=== PATIENT | female | born 1935 | race Caucasian/White ===

== ENCOUNTER 2017-06-18 12:10 | Inpatient (IN) | payer MEDICARE, MEDICAID ==
[2017-06-18 13:15] LABS: ABSOLUTE EOSINOPHILS # (AUTO) 0.3 10^3/uL (0.0-0.6); ABSOLUTE MONOCYTES (AUTO) 0.6 10^3/uL (0.1-1.4); ABSOLUTE NEUT (AUTO) 4.6 10^3/uL (1.7-8.2); BASOPHILS % (AUTO) 0.6 % (0-2); EOSINOPHILS % (AUTO) 4.1 % (0-6); HEMATOCRIT 26.5 % (36.0-47.0); HEMOGLOBIN 8.5 g/dL (12.0-15.5); LYMPHOCYTES % (AUTO) 15.6 % (13-45); MEAN CORPUSCULAR HEMOGLOBIN 27.5 pg (27.0-33.4); MEAN CORPUSCULAR HGB CONC 32.2 g/dL (32.0-36.0); MEAN CORPUSCULAR VOLUME 85 fl (80-97); MONOCYTES % (AUTO) 9.3 % (3-13); PLATELET COUNT 350 10^3/uL (150-450); RED CELL DISTRIBUTION WIDTH 16.1 % (11.5-14.0); SEGMENTED NEUTROPHILS % (AUTO) 70.4 % (42-78); TOTAL CELLS COUNTED % (AUTO) 100 %; WHITE BLOOD COUNT 6.6 10^3/uL (4.0-10.5)
[2017-06-18 13:16] LABS: APPEARANCE,URINE TURBID; BILIRUBIN,URINE NEGATIVE (NEGATIVE); GLUCOSE, URINE NEGATIVE (NEGATIVE); KETONES,URINE NEGATIVE (NEGATIVE); LEUKOCYTE ESTERASE,URINE LARGE (NEGATIVE); NITRITE,URINE POSITIVE (NEGATIVE); PROTEIN,URINE 30 mg/dL (NEGATIVE); URINE SPECIFIC GRAVITY 1.017; UROBILINOGEN,URINE NEGATIVE mg/dL (<2.0)
[2017-06-18 13:17] LABS: COLOR,URINE YELLOW
[2017-06-18 13:34] LABS: ALANINE AMINOTRANSFERASE 16 U/L (9-52); ALBUMIN 3.7 g/dL (3.5-5.0); ALKALINE PHOSPHATASE 51 U/L (38-126); ANION GAP 15 (5-19); ASPARTATE AMINO TRANSFERASE 17 U/L (14-36); BILIRUBIN,DIRECT 0.1 mg/dL (0.0-0.4); BILIRUBIN,TOTAL 0.1 mg/dL (0.2-1.3); BLOOD UREA NITROGEN 41 mg/dL (7-20); CALCIUM 9.3 mg/dL (8.4-10.2); CARBON DIOXIDE 26 mmol/L (22-30); CHLORIDE 107 mmol/L (98-107); GLUCOSE 128 mg/dL (75-110); POTASSIUM 4.4 mmol/L (3.6-5.0); SODIUM 147.9 mmol/L (137-145); TOTAL PROTEIN 6.5 g/dL (6.3-8.2)
--- NOTE | 2017-06-18 14:18 | ER Document Report ---
ED General - General Chief Complaint: Altered Mental Status Stated Complaint: ALTERED MENTAL STATUS Time Seen by Provider: 06/18/17 12:36 Notes: Patient is a resident of a local shelter who was sent here to get lab studies done, at the request of the patient's primary care provider. Patient has a history of dementia with aggressive and agitated behavior, but apparently is more agitated than normal, not allowing the staff to draw blood or check her urine test. Patient is unable to answer any questions or provide any history and there is no family member or staff member from the shelter to provide any other information. Reviewing her record, in addition to her dementia, shows that she has chronic renal disease, NIDDM, hypertension, and high cholesterol. No other history is available. TRAVEL OUTSIDE OF THE [place] IN LAST 30 DAYS: No - Related Data Allergies/Adverse Reactions: No Known Allergies Allergy (Verified 03/15/14 07:31) Past Medical History - Social History Smoking Status: Unknown if Ever Smoked Cigarette use (# per day): No Family History: Reviewed & Not Pertinent - Past Medical History Cardiac Medical History: Reports: Hx Atrial Fibrillation, Hx Congestive Heart Failure, Hx Hypercholesterolemia, Hx Hypertension Neurological Medical History: Reports: Other - Dementia Endocrine Medical History: Reports: Hx Diabetes Mellitus Type 1, Hx Diabetes Mellitus Type 2 Musculoskeltal Medical History: Denies Hx Arthritis Infectious Medical History: Denies: Hx Hepatitis Past Surgical History: Reports: Hx Hysterectomy - Immunizations Hx Diphtheria, Pertussis, Tetanus Vaccination: No - unknown Review of Systems - Review of Systems -: Yes ROS unobtainable due to patient's medical condition - No one is available to provide any information for review of systems. Physical Exam - Vital signs Vitals: Temp Pulse Resp BP Pulse Ox 98.3 F 87 18 117/83 98 06/18/17 12:20 06/18/17 12:20 06/18/17 12:20 06/18/17 12:20 06/18/17 12:20 Interpretation: Normal - Notes Notes: PHYSICAL EXAMINATION: GENERAL: Well-appearing, in no acute distress. Quiet, but very nasty sarcastic responses to my questions. HEAD: Atraumatic, normocephalic. EYES: Pupils equal round and reactive to light, extraocular movements intact. ENT: oropharynx clear without exudates. Moist mucous membranes. NECK: Normal range of motion, supple. LUNGS: Breath sounds clear and equal bilaterally. HEART: Irregularly irregular rate and rhythm without murmurs. ABDOMEN: Soft, nontender. No guarding or rebound. No masses. BACK: No tenderness throughout entire back. EXTREMITIES: Normal range of motion without pain. NEUROLOGICAL: Normal speech, but confused and disoriented and inappropriate remarks. Does not follow commands. Does not answer questions appropriately. Moves all 4 extremities. SKIN: Warm, dry, no rashes. Course - Re-evaluation Re-evalutation: 06/18/17 14:25 Discussed with patient's primary care provider, Dr. Rivas, and he will admit the patient for IV antibiotics for her UTI. - Vital Signs Vital signs: Temp Pulse Resp BP Pulse Ox 98.3 F 87 18 117/83 98 06/18/17 12:20 06/18/17 12:20 06/18/17 12:20 06/18/17 12:20 06/18/17 12:20 - Laboratory Result Diagrams: 06/18/17 12:55 06/18/17 12:55 Laboratory results interpreted by me: 06/18/17 06/18/17 06/18/17 12:48 12:55 12:55 RBC 3.10 L Hgb 8.5 L Hct 26.5 L RDW 16.1 H Sodium 147.9 H BUN 41 H Creatinine 1.44 H Est GFR ( Amer) 42 L Est GFR (Non-Af Amer) 35 L Glucose 128 H Total Bilirubin 0.1 L Urine Protein 30 H Urine Nitrite POSITIVE H Ur Leukocyte Esterase LARGE H Urine Ascorbic Acid 40 H - EKG Interpretation by Ct Rate: Normal Rhythm: A.Fib Additional EKG results interpreted by me: 06/18/17 14:28 EKG does not show any acute changes. Discharge - Discharge Clinical Impression: UTI (urinary tract infection), Dementia Condition: Stable Disposition: ADMITTED INPATIENT Admitting Provider: [facility] Admitted: Medical Floor
[2017-06-18] MEDS ORDERED: NORMAL SALINE 1000 ML 1,000 ML IV PRN (22:31)
[2017-06-18] MEDS ORDERED: ACETAMINOPHEN 325 MG TABLET PO PRN (22:35)
[2017-06-18] MEDS ORDERED: MAGNESIUM HYDROXIDE SUSP 30 ML UDCUP PO PRN (22:35)
[2017-06-18] MEDS ORDERED: ATORVASTATIN CALCIUM 10 MG TABLET PO SCH (22:45)
[2017-06-18] MEDS ORDERED: CRANBERRY FRUIT EXTRACT 250 MG PO SCH (22:45)
[2017-06-18] MEDS ORDERED: [UNRECOGNIZED DRUG - OTHER] PO SCH (22:45)
--- NOTE | 2017-06-18 22:55 | EKG REPORT ---
SEVERITY:- ABNORMAL ECG - ATRIAL FIBRILLATION LEFT ANTERIOR FASCICULAR BLOCK LOW VOLTAGE IN FRONTAL LEADS CONSIDER ANTEROSEPTAL INFARCT NONSPECIFIC T ABNORMALITIES, LATERAL LEADS : Confirmed by: Jayro Encinas 18-Jun-2017 22:55:07
[2017-06-18] MEDS ORDERED: HEPARIN SOD (PORCINE) 5,000 UNIT/ML 1 ML SYRINGE SUBCUT ONE (23:00)
[2017-06-18] MEDS ORDERED: ATORVASTATIN CALCIUM 10 MG TABLET PO ONE (23:00)
[2017-06-18] MEDS ORDERED: CEFTRIAXONE 1 GM/D5W RTU 1 GM/50 ML RTUPB IV ONE (23:00)
[2017-06-18] MEDS ORDERED: HYDRALAZINE HCL 50 MG TABLET PO ONE (23:00)
[2017-06-18] MEDS ORDERED: CEFTRIAXONE INJ 1000 MG VIAL ONE (23:09)
[2017-06-19] MEDS: HEPARIN SOD (PORCINE) 5,000 UNIT/ML 1 ML SYRINGE SUBCUT SCH ×3 (05:45→21:15)
[2017-06-19] MEDS: HYDRALAZINE HCL 50 MG TABLET PO SCH ×3 (05:46→21:16)
[2017-06-19] MEDS: CALCIUM CARBONATE 500 MG TAB.CHEW PO SCH ×2 (11:53→18:54)
[2017-06-19] MEDS: SITAGLIPTIN PHOSPHATE 25 MG TABLET PO SCH (11:53)
[2017-06-19] MEDS: DILTIAZEM HCL 120 MG CAP.SR.24H PO SCH (11:53)
[2017-06-19] MEDS: MEMANTINE HCL 10 MG TABLET PO SCH ×2 (11:53→18:53)
[2017-06-19] MEDS: ASPIRIN 81 MG TABLET, CHEWABLE PO SCH (11:53)
[2017-06-19] MEDS: CEFTRIAXONE SODIUM 1,000 MG in DEXTROSE 5%-WATER 50 ML IV SCH (21:16)
[2017-06-19] MEDS: ATORVASTATIN CALCIUM 10 MG TABLET PO SCH (21:16)
[2017-06-19] MEDS ORDERED: CEFTRIAXONE 1 GM/D5W RTU 1 GM/50 ML RTUPB IV SCH (22:00)
--- NOTE | 2017-06-19 22:37 | PDOC H&P ---
History of Present Illness Admission Date/PCP: 06/18/17 14:34 NEISHA AGUILAR MD History of Present Illness: NINA DALEY is a 82 year old female, She has baseline dementia, chronic kidney disease stage III, she was extremely agitated, she is a resident of the skilled nursing at [facility]. The agitation is out of character for the patient she was transferred to the emergency room to rule out a metabolic cause or other causes of the extreme agitation, in the ER she was evaluated she was found to have severe urinary tract infection this was felt to be the potential etiology of increased agitation which is out of character for her Past Medical History Cardiac Medical History: Reports: Atrial Fibrillation, Congestive Heart Failure , Hyperlipidema, Hypertension Endocrine Medical History: Reports: Diabetes Mellitus Type 2 Musculoskeltal Medical History: Denies: Arthritis Past Surgical History Past Surgical History: Reports: Hysterectomy Social History Smoking Status: Unknown if Ever Smoked Frequency of Alcohol Use: None Hx Prescription Drug Abuse: No - Advance Directive Resuscitation Status: Do Not Resuscitate Family History Family History: Reviewed & Not Pertinent Parental Family History Reviewed: Yes Children Family History Reviewed: Yes Sibling(s) Family History Reviewed.: Yes Medication/Allergy Home Medications: Acetaminophen [Tylenol 325 mg Tablet] 650 mg PO Q6HP PRN 06/18/17 Aspirin [Aspirin 81 mg Chewable Tablet] 81 mg PO DAILY 06/18/17 Atorvastatin Calcium [Lipitor 10 mg Tablet] 10 mg PO QHS 06/18/17 Calcium Carbonate [Tums Chewable 500 mg Tab.chew] 250 mg PO BID 06/18/17 Cranberry Fruit Extract [Cranberry 250 mg Capsule] 250 mg PO DAILY 06/18/17 Diltiazem HCl [Dilacor Xr] 120 mg PO DAILY 06/18/17 Hydralazine HCl [Apresoline 50 mg Tablet] 50 mg PO Q8 06/18/17 Linagliptin [Tradjenta] 5 mg PO DAILY 06/18/17 Magnesium Hydroxide [Milk of Magnesia 30 ml Udcup] 30 ml PO ASDIR PRN 06/18/17 Memantine HCl [Namenda 10 mg Tablet] 10 mg PO BID 06/18/17 Multivit-Min/FA/Lycopen/Lutein [Certavite Sr-Antioxidant Tab] 1 tab PO DAILY Potassium Chloride [Klor-Con M10] 10 meq PO Q12 06/18/17 Trimethoprim [Trimpex 100 Mg Tablet] 100 mg PO QHS 06/18/17 Allergies/Adverse Reactions: No Known Allergies Allergy (Verified 03/15/14 07:31) Review of Systems ROS unobtainable: Due to mental status Physical Exam Vital Signs: Temp Pulse Resp BP Pulse Ox 97.5 F 114 H 19 106/56 L 99 06/19/17 08:06 06/19/17 08:06 06/19/17 08:06 06/19/17 08:06 06/19/17 08:06 Intake & Output 06/18/17 06/19/17 06/20/17 06:59 06:59 06:59 Intake Total 850 1202 Balance 850 1202 Weight 65.5 kg General appearance: PRESENT: other - Agitated Eye exam: PRESENT: PERRLA Respiratory exam: PRESENT: clear to auscultation jesus Cardiovascular exam: PRESENT: +S1, +S2, systolic murmur GI/Abdominal exam: PRESENT: soft Neurological exam: PRESENT: alert Assessment & Plan - Diagnosis (1) Metabolic encephalopathy Is this a current diagnosis for this admission?: Yes (2) Urinary tract infection Qualifiers: Urinary tract infection type: site unspecified Hematuria presence: without hematuria Qualified Code(s): N39.0 - Urinary tract infection, site not specified Is this a current diagnosis for this admission?: Yes Plan: Urine culture is obtained she will empirically be treated with antibiotic (3) Chronic kidney disease, stage 3 Is this a current diagnosis for this admission?: Yes
--- NOTE | 2017-06-19 22:40 | PDOC PROGRESS REPORT ---
Subjective Progress Note for:: 06/19/17 Subjective:: Patient is seen by the bedside, she is less agitated, the urine culture is growing gram-negative rods Reason For Visit: HYPERNATREMIA,UTI,ACUTE KIDNEY INJURY Physical Exam Vital Signs: Temp Pulse Resp BP Pulse Ox 97.5 F 114 H 19 106/56 L 99 06/19/17 08:06 06/19/17 08:06 06/19/17 08:06 06/19/17 08:06 06/19/17 08:06 Intake & Output 06/18/17 06/19/17 06/20/17 06:59 06:59 06:59 Intake Total 850 1202 Balance 850 1202 Weight 65.5 kg General appearance: PRESENT: no acute distress Eye exam: PRESENT: PERRLA Respiratory exam: PRESENT: clear to auscultation jesus Cardiovascular exam: PRESENT: +S1, +S2 GI/Abdominal exam: PRESENT: soft Neurological exam: PRESENT: alert, CN II-XII grossly intact Assessment & Plan - Diagnosis (1) Metabolic encephalopathy Is this a current diagnosis for this admission?: Yes (2) Urinary tract infection Qualifiers: Urinary tract infection type: site unspecified Hematuria presence: without hematuria Qualified Code(s): N39.0 - Urinary tract infection, site not specified Is this a current diagnosis for this admission?: Yes (3) Chronic kidney disease, stage 3 Is this a current diagnosis for this admission?: Yes - Plan Summary Plan Summary: Continue IV fluids and antibiotic
[2017-06-19 23:36] LABS: ABSOLUTE BASOPHILS # (AUTO) 0.1 10^3/uL (0.0-0.2); ABSOLUTE EOSINOPHILS # (AUTO) 0.3 10^3/uL (0.0-0.6); ABSOLUTE LYMPHOCYTES (AUTO) 1.1 10^3/uL (0.5-4.7); ABSOLUTE MONOCYTES (AUTO) 0.5 10^3/uL (0.1-1.4); ABSOLUTE NEUT (AUTO) 2.7 10^3/uL (1.7-8.2); ALANINE AMINOTRANSFERASE 18 U/L (9-52); ALBUMIN 3.4 g/dL (3.5-5.0); ALKALINE PHOSPHATASE 45 U/L (38-126); ANION GAP 11 (5-19); ASPARTATE AMINO TRANSFERASE 31 U/L (14-36); BASOPHILS % (AUTO) 1.2 % (0-2); BLOOD UREA NITROGEN 36 mg/dL (7-20); CALCIUM 8.2 mg/dL (8.4-10.2); CARBON DIOXIDE 26 mmol/L (22-30); CHLORIDE 107 mmol/L (98-107); EOSINOPHILS % (AUTO) 7.2 % (0-6); GLUCOSE 120 mg/dL (75-110); HEMATOCRIT 23.5 % (36.0-47.0); LYMPHOCYTES % (AUTO) 23.5 % (13-45); MEAN CORPUSCULAR HEMOGLOBIN 27.8 pg (27.0-33.4); MEAN CORPUSCULAR HGB CONC 32.7 g/dL (32.0-36.0); MEAN CORPUSCULAR VOLUME 85 fl (80-97); MONOCYTES % (AUTO) 10.7 % (3-13); PLATELET COUNT 292 10^3/uL (150-450); POTASSIUM 3.9 mmol/L (3.6-5.0); RED BLOOD COUNT 2.76 10^6/uL (3.72-5.28); SEGMENTED NEUTROPHILS % (AUTO) 57.4 % (42-78); SODIUM 144.2 mmol/L (137-145); TOTAL CELLS COUNTED % (AUTO) 100 %; TOTAL PROTEIN 6.3 g/dL (6.3-8.2); WHITE BLOOD COUNT 4.7 10^3/uL (4.0-10.5)
[2017-06-19 23:40] LABS: BILIRUBIN,TOTAL < 0.1 mg/dL (0.2-1.3)
[2017-06-19 23:57] LABS: HEMOGLOBIN 7.7 g/dL (12.0-15.5)
[2017-06-20] MEDS: HYDRALAZINE HCL 50 MG TABLET PO SCH ×3 (05:14→21:31)
[2017-06-20] MEDS: HEPARIN SOD (PORCINE) 5,000 UNIT/ML 1 ML SYRINGE SUBCUT SCH ×3 (05:14→21:34)
[2017-06-20 05:57] LABS: ABSOLUTE EOSINOPHILS # (AUTO) 0.3 10^3/uL (0.0-0.6); ABSOLUTE LYMPHOCYTES (AUTO) 1.2 10^3/uL (0.5-4.7); ABSOLUTE MONOCYTES (AUTO) 0.5 10^3/uL (0.1-1.4); ABSOLUTE NEUT (AUTO) 2.5 10^3/uL (1.7-8.2); EOSINOPHILS % (AUTO) 6.2 % (0-6); HEMATOCRIT 23.7 % (36.0-47.0); LYMPHOCYTES % (AUTO) 26.4 % (13-45); MEAN CORPUSCULAR HEMOGLOBIN 27.5 pg (27.0-33.4); MEAN CORPUSCULAR HGB CONC 32.4 g/dL (32.0-36.0); MEAN CORPUSCULAR VOLUME 85 fl (80-97); MONOCYTES % (AUTO) 11.2 % (3-13); PLATELET COUNT 306 10^3/uL (150-450); RED BLOOD COUNT 2.79 10^6/uL (3.72-5.28); RED CELL DISTRIBUTION WIDTH 16.2 % (11.5-14.0); SEGMENTED NEUTROPHILS % (AUTO) 55.2 % (42-78); TOTAL CELLS COUNTED % (AUTO) 100 %; WHITE BLOOD COUNT 4.6 10^3/uL (4.0-10.5)
[2017-06-20 06:00] LABS: HEMOGLOBIN 7.7 g/dL (12.0-15.5)
[2017-06-20 06:12] LABS: ANION GAP 9 (5-19); BLOOD UREA NITROGEN 38 mg/dL (7-20); CALCIUM 8.4 mg/dL (8.4-10.2); CARBON DIOXIDE 26 mmol/L (22-30); CHLORIDE 110 mmol/L (98-107); GLUCOSE 97 mg/dL (75-110); POTASSIUM 4.2 mmol/L (3.6-5.0); SODIUM 145.1 mmol/L (137-145)
[2017-06-20] MEDS ORDERED: NORMAL SALINE 1000 ML 1,000 ML IV PRN (09:10)
[2017-06-20 09:25] LABS: ABSOLUTE RETICS # 0.037 10^6/uL (0.028-0.122); RETICULOCYTE COUNT (AUTO) 1.32 % (0.66-2.85)
[2017-06-20] MEDS ORDERED: NORMAL SALINE 250 ML IV PRN ×2 (09:49)
[2017-06-20] MEDS ORDERED: FUROSEMIDE INJ/PF 20 MG/2 ML SDV IV PRN (09:49)
[2017-06-20] MEDS: CALCIUM CARBONATE 500 MG TAB.CHEW PO SCH ×2 (10:17→17:22)
[2017-06-20] MEDS: DILTIAZEM HCL 120 MG CAP.SR.24H PO SCH (10:17)
[2017-06-20] MEDS: SITAGLIPTIN PHOSPHATE 25 MG TABLET PO SCH (10:17)
[2017-06-20] MEDS: ASPIRIN 81 MG TABLET, CHEWABLE PO SCH (10:17)
[2017-06-20] MEDS: MEMANTINE HCL 10 MG TABLET PO SCH ×2 (10:17→17:23)
--- NOTE | 2017-06-20 11:23 | PDOC PROGRESS REPORT ---
Subjective Progress Note for:: 06/20/17 Subjective:: Patient is a significant dementia and very agitated Hemoglobin is 7.7 and looking for the history of present hemoglobin reached up to 5.7 in the past There is no obvious any blood loss No fever and no chills Reason For Visit: HYPERNATREMIA,UTI,ACUTE KIDNEY INJURY Physical Exam Vital Signs: Temp Pulse Resp BP Pulse Ox 97.5 F 114 H 19 106/56 L 99 06/19/17 08:06 06/19/17 08:06 06/19/17 08:06 06/19/17 08:06 06/19/17 08:06 Intake & Output 06/19/17 06/20/17 06/21/17 06:59 06:59 06:59 Intake Total 850 1882 Balance 850 1882 Weight 65.5 kg 65.5 kg Physical Exam: dementia General appearance: PRESENT: no acute distress Eye exam: PRESENT: PERRLA Respiratory exam: PRESENT: clear to auscultation jesus Cardiovascular exam: PRESENT: +S1, +S2 GI/Abdominal exam: PRESENT: normal bowel sounds, soft Extremities exam: ABSENT: pedal edema Neurological exam: PRESENT: alert, awake, oriented to person Psychiatric exam: PRESENT: anxious Skin exam: PRESENT: dry Results Laboratory Results: 06/20/17 05:14 06/20/17 05:14 06/19/17 06/19/17 06/20/17 23:12 23:12 05:14 WBC 4.7 4.6 RBC 2.76 L 2.79 L Hgb 7.7 L 7.7 L Hct 23.5 L 23.7 L MCV 85 85 MCH 27.8 27.5 MCHC 32.7 32.4 RDW 16.0 H 16.2 H Plt Count 292 306 Seg Neutrophils % 57.4 55.2 Lymphocytes % 23.5 26.4 Monocytes % 10.7 11.2 Eosinophils % 7.2 H 6.2 H Basophils % 1.2 1.0 Absolute Neutrophils 2.7 2.5 Absolute Lymphocytes 1.1 1.2 Absolute Monocytes 0.5 0.5 Absolute Eosinophils 0.3 0.3 Absolute Basophils 0.1 0.0 Retic Count (auto) Absolute Retic Sodium 144.2 Potassium 3.9 Chloride 107 Carbon Dioxide 26 Anion Gap 11 BUN 36 H Creatinine 1.21 Est GFR ( Amer) 52 L Est GFR (Non-Af Amer) 43 L Glucose 120 H Calcium 8.2 L Total Bilirubin < 0.1 L AST 31 ALT 18 Alkaline Phosphatase 45 Total Protein 6.3 Albumin 3.4 L 06/20/17 06/20/17 05:14 05:14 WBC RBC Hgb Hct MCV MCH MCHC RDW Plt Count Seg Neutrophils % Lymphocytes % Monocytes % Eosinophils % Basophils % Absolute Neutrophils Absolute Lymphocytes Absolute Monocytes Absolute Eosinophils Absolute Basophils Retic Count (auto) 1.32 Absolute Retic 0.037 Sodium 145.1 H Potassium 4.2 Chloride 110 H Carbon Dioxide 26 Anion Gap 9 BUN 38 H Creatinine 1.18 Est GFR ( Amer) 53 L Est GFR (Non-Af Amer) 44 L Glucose 97 Calcium 8.4 Total Bilirubin AST ALT Alkaline Phosphatase Total Protein Albumin Assessment & Plan - Diagnosis (1) Chronic kidney disease, stage 3 Is this a current diagnosis for this admission?: Yes (2) Dementia Is this a current diagnosis for this admission?: Yes (3) Metabolic encephalopathy Is this a current diagnosis for this admission?: Yes (4) UTI (urinary tract infection) Qualifiers: Urinary tract infection type: site unspecified Is this a current diagnosis for this admission?: Yes (5) Altered mental status Qualifiers: Altered mental status type: unspecified Qualified Code(s): R41.82 - Altered mental status, unspecified Is this a current diagnosis for this admission?: Yes (6) Anemia Qualifiers: Anemia type: other cause Is this a current diagnosis for this admission?: Yes - Time Time Spent with patient: 15-24 minutes Medications reviewed and adjusted accordingly: Yes Anticipated discharge: Other Within: Other - Inpatient Certification Medical Necessity: Need Close Monitoring Due to Risk of Patient Decompensation, Need for IV Antibiotics Post Hospital Care: D/C Biology Instructor Documentation - Plan Summary Plan Summary: We will transfuse 1 unit of the blood The iron study And get the stool for guaiac
[2017-06-20 12:05] LABS: IRON(TIBC) 24.5 ug/dL (37-170)
[2017-06-20 13:19] LABS: FOLATE > 20.00 ng/mL (>2.76)
[2017-06-20 19:48] LABS: ABSOLUTE BASOPHILS # (AUTO) 0.1 10^3/uL (0.0-0.2); ABSOLUTE EOSINOPHILS # (AUTO) 0.3 10^3/uL (0.0-0.6); ABSOLUTE LYMPHOCYTES (AUTO) 0.8 10^3/uL (0.5-4.7); ABSOLUTE MONOCYTES (AUTO) 0.5 10^3/uL (0.1-1.4); ABSOLUTE NEUT (AUTO) 3.3 10^3/uL (1.7-8.2); BASOPHILS % (AUTO) 1.1 % (0-2); EOSINOPHILS % (AUTO) 5.2 % (0-6); HEMATOCRIT 28.2 % (36.0-47.0); HEMOGLOBIN 9.4 g/dL (12.0-15.5); LYMPHOCYTES % (AUTO) 16.9 % (13-45); MEAN CORPUSCULAR HEMOGLOBIN 28.5 pg (27.0-33.4); MEAN CORPUSCULAR HGB CONC 33.3 g/dL (32.0-36.0); MEAN CORPUSCULAR VOLUME 86 fl (80-97); MONOCYTES % (AUTO) 10.2 % (3-13); PLATELET COUNT 283 10^3/uL (150-450); RED CELL DISTRIBUTION WIDTH 15.7 % (11.5-14.0); SEGMENTED NEUTROPHILS % (AUTO) 66.6 % (42-78); TOTAL CELLS COUNTED % (AUTO) 100 %; WHITE BLOOD COUNT 4.9 10^3/uL (4.0-10.5)
[2017-06-20] MEDS: CEFTRIAXONE SODIUM 1,000 MG in DEXTROSE 5%-WATER 50 ML IV SCH (21:30)
[2017-06-20] MEDS: ATORVASTATIN CALCIUM 10 MG TABLET PO SCH (21:30)
[2017-06-21] MEDS: HEPARIN SOD (PORCINE) 5,000 UNIT/ML 1 ML SYRINGE SUBCUT SCH ×3 (05:04→21:40)
[2017-06-21] MEDS: HYDRALAZINE HCL 50 MG TABLET PO SCH ×3 (05:06→21:40)
[2017-06-21 05:22] LABS: ABSOLUTE BASOPHILS # (AUTO) 0.1 10^3/uL (0.0-0.2); ABSOLUTE EOSINOPHILS # (AUTO) 0.4 10^3/uL (0.0-0.6); ABSOLUTE LYMPHOCYTES (AUTO) 1.7 10^3/uL (0.5-4.7); ABSOLUTE MONOCYTES (AUTO) 0.9 10^3/uL (0.1-1.4); ABSOLUTE NEUT (AUTO) 4.8 10^3/uL (1.7-8.2); EOSINOPHILS % (AUTO) 5.2 % (0-6); HEMATOCRIT 28.9 % (36.0-47.0); HEMOGLOBIN 9.4 g/dL (12.0-15.5); LYMPHOCYTES % (AUTO) 21.5 % (13-45); MEAN CORPUSCULAR HEMOGLOBIN 27.6 pg (27.0-33.4); MEAN CORPUSCULAR HGB CONC 32.6 g/dL (32.0-36.0); MEAN CORPUSCULAR VOLUME 85 fl (80-97); RED BLOOD COUNT 3.41 10^6/uL (3.72-5.28); RED CELL DISTRIBUTION WIDTH 15.5 % (11.5-14.0); SEGMENTED NEUTROPHILS % (AUTO) 61.3 % (42-78); TOTAL CELLS COUNTED % (AUTO) 100 %; WHITE BLOOD COUNT 7.8 10^3/uL (4.0-10.5)
[2017-06-21 05:36] LABS: ANION GAP 10 (5-19); BLOOD UREA NITROGEN 30 mg/dL (7-20); CALCIUM 9.1 mg/dL (8.4-10.2); CARBON DIOXIDE 25 mmol/L (22-30); CHLORIDE 112 mmol/L (98-107); GLUCOSE 91 mg/dL (75-110); POTASSIUM 3.6 mmol/L (3.6-5.0); SODIUM 147.4 mmol/L (137-145)
[2017-06-21 05:48] LABS: PLATELET COUNT 266 10^3/uL (150-450)
[2017-06-21] MEDS: MEMANTINE HCL 10 MG TABLET PO SCH ×2 (10:01→17:16)
[2017-06-21] MEDS: DILTIAZEM HCL 120 MG CAP.SR.24H PO SCH (10:01)
[2017-06-21] MEDS: ASPIRIN 81 MG TABLET, CHEWABLE PO SCH (10:02)
[2017-06-21] MEDS: CALCIUM CARBONATE 500 MG TAB.CHEW PO SCH ×2 (10:02→17:16)
[2017-06-21] MEDS: SITAGLIPTIN PHOSPHATE 25 MG TABLET PO SCH (10:02)
--- NOTE | 2017-06-21 10:37 | PDOC PROGRESS REPORT ---
Subjective Progress Note for:: 06/21/17 Subjective:: Patient is currently doing much better compared to yesterday Agitation all currently resolved Patients received the 1 unit of the blood and hemoglobin currently stable Reason For Visit: HYPERNATREMIA,UTI,ACUTE KIDNEY INJURY Physical Exam Vital Signs: Temp Pulse Resp BP Pulse Ox 97.6 F 108 H 17 150/69 H 95 06/21/17 00:00 06/21/17 00:00 06/21/17 00:00 06/21/17 00:00 06/21/17 00:00 Intake & Output 06/20/17 06/21/17 06/22/17 06:59 06:59 06:59 Intake Total 1881 1815 Balance 1881 1815 Weight 65.5 kg 69.1 kg General appearance: PRESENT: no acute distress, well-developed, well-nourished Head exam: PRESENT: atraumatic, normocephalic Eye exam: PRESENT: conjunctiva pink, EOMI, PERRLA. ABSENT: scleral icterus Ear exam: PRESENT: normal external ear exam Mouth exam: PRESENT: moist, tongue midline Neck exam: PRESENT: full ROM. ABSENT: carotid bruit, JVD, lymphadenopathy, thyromegaly Respiratory exam: PRESENT: clear to auscultation jesus Cardiovascular exam: PRESENT: RRR. ABSENT: diastolic murmur, rubs, systolic murmur Pulses: PRESENT: normal dorsalis pedis pul, +2 pedal pulses bilateral Vascular exam: PRESENT: normal capillary refill GI/Abdominal exam: PRESENT: normal bowel sounds, soft. ABSENT: distended, guarding, mass, organolmegaly, rebound, tenderness Rectal exam: PRESENT: deferred Neurological exam: PRESENT: alert, altered, awake. ABSENT: motor sensory deficit Psychiatric exam: PRESENT: appropriate affect, normal mood. ABSENT: homicidal ideation, suicidal ideation Skin exam: PRESENT: dry, intact, warm. ABSENT: cyanosis, rash Results Laboratory Results: 06/21/17 04:40 06/21/17 04:40 06/20/17 06/20/17 06/20/17 11:30 11:30 19:25 WBC 4.9 RBC 3.30 L Hgb 9.4 L Hct 28.2 L MCV 86 MCH 28.5 MCHC 33.3 RDW 15.7 H Plt Count 283 Seg Neutrophils % 66.6 Lymphocytes % 16.9 Monocytes % 10.2 Eosinophils % 5.2 Basophils % 1.1 Absolute Neutrophils 3.3 Absolute Lymphocytes 0.8 Absolute Monocytes 0.5 Absolute Eosinophils 0.3 Absolute Basophils 0.1 Sodium Potassium Chloride Carbon Dioxide Anion Gap BUN Creatinine Est GFR ( Amer) Est GFR (Non-Af Amer) Glucose Calcium Iron 24.5 L TIBC 286 % Saturation 9 Ferritin 76.70 Vitamin B12 390.0 Folate > 20.00 Blood Type A POSITIVE Antibody Screen NEGATIVE 06/21/17 06/21/17 04:40 04:40 WBC 7.8 RBC 3.41 L Hgb 9.4 L Hct 28.9 L MCV 85 MCH 27.6 MCHC 32.6 RDW 15.5 H Plt Count 266 Seg Neutrophils % 61.3 Lymphocytes % 21.5 Monocytes % 11.0 Eosinophils % 5.2 Basophils % 1.0 Absolute Neutrophils 4.8 Absolute Lymphocytes 1.7 Absolute Monocytes 0.9 Absolute Eosinophils 0.4 Absolute Basophils 0.1 Sodium 147.4 H Potassium 3.6 Chloride 112 H Carbon Dioxide 25 Anion Gap 10 BUN 30 H Creatinine 1.04 Est GFR ( Amer) > 60 Est GFR (Non-Af Amer) 51 L Glucose 91 Calcium 9.1 Iron TIBC % Saturation Ferritin Vitamin B12 Folate Blood Type Antibody Screen Assessment & Plan - Diagnosis (1) Chronic kidney disease, stage 3 Is this a current diagnosis for this admission?: Yes (2) Dementia Is this a current diagnosis for this admission?: Yes (3) Metabolic encephalopathy Is this a current diagnosis for this admission?: Yes (4) UTI (urinary tract infection) Qualifiers: Urinary tract infection type: site unspecified Is this a current diagnosis for this admission?: Yes (5) Altered mental status Qualifiers: Altered mental status type: unspecified Qualified Code(s): R41.82 - Altered mental status, unspecified Is this a current diagnosis for this admission?: Yes (6) Anemia Qualifiers: Anemia type: other cause Is this a current diagnosis for this admission?: Yes - Time Time Spent with patient: 15-24 minutes Medications reviewed and adjusted accordingly: Yes Anticipated discharge: Other Within: Other - Inpatient Certification Medical Necessity: Need Close Monitoring Due to Risk of Patient Decompensation, Need For IV Fluids, Need for IV Antibiotics Post Hospital Care: D/C Bilingual Executive Assistant Documentation - Plan Summary Plan Summary: on IV antibiotic
[2017-06-21] MEDS: CEPHALEXIN 500 MG CAPSULE PO SCH (21:40)
[2017-06-21] MEDS: ATORVASTATIN CALCIUM 10 MG TABLET PO SCH (21:40)
[2017-06-22] MEDS: CEPHALEXIN 500 MG CAPSULE PO SCH ×3 (05:21→22:30)
[2017-06-22] MEDS: HEPARIN SOD (PORCINE) 5,000 UNIT/ML 1 ML SYRINGE SUBCUT SCH ×3 (05:21→22:30)
[2017-06-22] MEDS: HYDRALAZINE HCL 50 MG TABLET PO SCH ×2 (05:22→13:59)
[2017-06-22] MEDS: DILTIAZEM HCL 120 MG CAP.SR.24H PO SCH (11:21)
[2017-06-22] MEDS: SITAGLIPTIN PHOSPHATE 25 MG TABLET PO SCH (11:23)
[2017-06-22] MEDS: MEMANTINE HCL 10 MG TABLET PO SCH ×2 (11:24→18:33)
[2017-06-22] MEDS: CALCIUM CARBONATE 500 MG TAB.CHEW PO SCH ×2 (11:24→18:33)
[2017-06-22] MEDS: ASPIRIN 81 MG TABLET, CHEWABLE PO SCH (11:24)
--- NOTE | 2017-06-22 21:59 | PDOC PROGRESS REPORT ---
Subjective Progress Note for:: 06/22/17 Subjective:: She was admitted for E. coli UTI, increased agitation anemia status post blood transfusion she was seen by the bedside Reason For Visit: HYPERNATREMIA,UTI,ACUTE KIDNEY INJURY Physical Exam Vital Signs: Temp Pulse Resp BP Pulse Ox 97.6 F 105 H 18 122/96 H 91 L 06/22/17 16:01 06/22/17 16:01 06/22/17 16:01 06/22/17 16:01 06/22/17 16:01 Intake & Output 06/21/17 06/22/17 06/23/17 06:59 06:59 06:59 Intake Total 1815 100 218 Balance 1815 100 218 Weight 69.1 kg 68.8 kg General appearance: PRESENT: no acute distress Eye exam: PRESENT: PERRLA Respiratory exam: PRESENT: clear to auscultation jesus Cardiovascular exam: PRESENT: +S1, +S2 GI/Abdominal exam: PRESENT: soft Neurological exam: PRESENT: alert Results Laboratory Results: 06/21/17 04:40 06/21/17 04:40 Assessment & Plan - Diagnosis (1) Metabolic encephalopathy Is this a current diagnosis for this admission?: Yes (2) Urinary tract infection Qualifiers: Urinary tract infection type: site unspecified Hematuria presence: without hematuria Qualified Code(s): N39.0 - Urinary tract infection, site not specified Is this a current diagnosis for this admission?: Yes (3) Chronic kidney disease, stage 3 Is this a current diagnosis for this admission?: Yes - Plan Summary Plan Summary: Continue treatment
[2017-06-22] MEDS: ATORVASTATIN CALCIUM 10 MG TABLET PO SCH (22:30)
[2017-06-23] MEDS: HYDRALAZINE HCL 50 MG TABLET PO SCH ×3 (01:10→15:10)
[2017-06-23] MEDS: CEPHALEXIN 500 MG CAPSULE PO SCH ×2 (06:09→15:10)
[2017-06-23] MEDS: HEPARIN SOD (PORCINE) 5,000 UNIT/ML 1 ML SYRINGE SUBCUT SCH ×2 (06:13→15:11)
[2017-06-23] MEDS: MEMANTINE HCL 10 MG TABLET PO SCH (10:49)
[2017-06-23] MEDS: ASPIRIN 81 MG TABLET, CHEWABLE PO SCH (10:50)
[2017-06-23] MEDS: CALCIUM CARBONATE 500 MG TAB.CHEW PO SCH (10:50)
[2017-06-23] MEDS: SITAGLIPTIN PHOSPHATE 25 MG TABLET PO SCH (10:51)
[2017-06-23] MEDS: DILTIAZEM HCL 120 MG CAP.SR.24H PO SCH (10:56)
--- NOTE | 2017-06-23 16:40 | PDOC TRANSFER SUMMARY ---
General - Admit/Disc Date/PCP Admission Date/Primary Care Provider: 06/18/17 14:34 NEISHA AGUILAR MD Discharge Date: 06/23/17 - Discharge Diagnosis (1) Metabolic encephalopathy Is this a current diagnosis for this admission?: Yes (2) Urinary tract infection Is this a current diagnosis for this admission?: Yes (3) Chronic kidney disease, stage 3 Is this a current diagnosis for this admission?: Yes (4) Anemia in stage 3 chronic kidney disease Is this a current diagnosis for this admission?: Yes (5) Dementia Is this a current diagnosis for this admission?: Yes - Additional Information Resuscitation Status: Do Not Resuscitate Prescriptions: Metoprolol Succinate [Toprol XL 100 mg Tablet] 100 mg PO DAILY #120 tab.sr.24h Home Medications: Acetaminophen [Tylenol 325 mg Tablet] 650 mg PO Q6HP PRN 06/18/17 Aspirin [Aspirin 81 mg Chewable Tablet] 81 mg PO DAILY 06/18/17 Atorvastatin Calcium [Lipitor 10 mg Tablet] 10 mg PO QHS 06/18/17 Calcium Carbonate [Tums Chewable 500 mg Tab.chew] 250 mg PO BID 06/18/17 Cranberry Fruit Extract [Cranberry 250 mg Capsule] 250 mg PO DAILY 06/18/17 Hydralazine HCl [Apresoline 50 mg Tablet] 50 mg PO Q8 06/18/17 Linagliptin [Tradjenta] 5 mg PO DAILY 06/18/17 Memantine HCl [Namenda 10 mg Tablet] 10 mg PO BID 06/18/17 Multivit-Min/FA/Lycopen/Lutein [Certavite Sr-Antioxidant Tab] 1 tab PO DAILY Metoprolol Succinate [Toprol XL 100 mg Tablet] 100 mg PO DAILY #120 tab.sr.24h 06/23/17 History of Present Illness Admission Date/PCP: 06/18/17 14:34 NEISHA AGUILAR MD History of Present Illness: NINA DALEY is a 82 year old female, She has baseline dementia, chronic kidney disease stage III, she was extremely agitated, she is a resident of the longterm at [facility]. The agitation is out of character for the patient she was transferred to the emergency room to rule out a metabolic cause or other causes of the extreme agitation, in the ER she was evaluated she was found to have severe urinary tract infection this was felt to be the potential etiology of increased agitation which is out of character for her Hospital Course Hospital Course: She was admitted for the management of acute confusion in the setting of E. coli UTI, she was treated with IV antibiotic, she has baseline dementia. She is a resident of the longterm at [facility] she has anemia of chronic kidney disease, she was transfused with 2 units of packed red blood cell Physical Exam Vital Signs: Temp Pulse Resp BP Pulse Ox 98.2 F 87 18 99/45 L 99 06/23/17 07:59 06/23/17 07:59 06/23/17 07:59 06/23/17 07:59 06/23/17 07:59 Intake & Output 06/22/17 06/23/17 06/24/17 06:59 06:59 06:59 Intake Total 100 318 100 Balance 100 318 100 Weight 68.8 kg 68.6 kg General appearance: PRESENT: no acute distress Head exam: PRESENT: atraumatic, normocephalic Eye exam: PRESENT: PERRLA Respiratory exam: PRESENT: clear to auscultation jesus Cardiovascular exam: PRESENT: RRR, +S1, +S2 Pulses: PRESENT: normal dorsalis pedis pul Vascular exam: PRESENT: normal capillary refill GI/Abdominal exam: PRESENT: normal bowel sounds, soft Rectal exam: PRESENT: deferred Extremities exam: PRESENT: full ROM. ABSENT: calf tenderness, clubbing, pedal edema Neurological exam: PRESENT: alert Psychiatric exam: ABSENT: homicidal ideation, suicidal ideation Skin exam: PRESENT: dry, intact, warm Results Laboratory Results: 06/21/17 04:40 06/21/17 04:40 06/20/17 11:30 Transferrin 198 L 06/18/17 14:47 Blood Blood Culture - Final NO GROWTH IN 5 DAYS Qualifiers - * PATEINT BEING DISCHARGED WITH ANY OF THE FOLLOWING DIAGNOSIS?: No
[2017-06-23 17:00] VITALS: BP 136/44
[2017-06-23 17:55] LABS: ABSOLUTE EOSINOPHILS # (AUTO) 0.2 10^3/uL (0.0-0.6); ABSOLUTE LYMPHOCYTES (AUTO) 0.9 10^3/uL (0.5-4.7); ABSOLUTE MONOCYTES (AUTO) 0.5 10^3/uL (0.1-1.4); ABSOLUTE NEUT (AUTO) 3.2 10^3/uL (1.7-8.2); BASOPHILS % (AUTO) 0.8 % (0-2); EOSINOPHILS % (AUTO) 4.9 % (0-6); HEMATOCRIT 29.3 % (36.0-47.0); HEMOGLOBIN 9.7 g/dL (12.0-15.5); LYMPHOCYTES % (AUTO) 19.2 % (13-45); MEAN CORPUSCULAR HEMOGLOBIN 28.2 pg (27.0-33.4); MEAN CORPUSCULAR HGB CONC 33.1 g/dL (32.0-36.0); MEAN CORPUSCULAR VOLUME 85 fl (80-97); MONOCYTES % (AUTO) 9.9 % (3-13); PLATELET COUNT 298 10^3/uL (150-450); RED BLOOD COUNT 3.43 10^6/uL (3.72-5.28); RED CELL DISTRIBUTION WIDTH 15.8 % (11.5-14.0); SEGMENTED NEUTROPHILS % (AUTO) 65.2 % (42-78); TOTAL CELLS COUNTED % (AUTO) 100 %; WHITE BLOOD COUNT 4.9 10^3/uL (4.0-10.5)
[2017-06-23 18:25] LABS: ALANINE AMINOTRANSFERASE 14 U/L (9-52); ALBUMIN 3.3 g/dL (3.5-5.0); ALKALINE PHOSPHATASE 42 U/L (38-126); ANION GAP 10 (5-19); ASPARTATE AMINO TRANSFERASE 23 U/L (14-36); BILIRUBIN,DIRECT 0.2 mg/dL (0.0-0.4); BILIRUBIN,TOTAL 0.2 mg/dL (0.2-1.3); BLOOD UREA NITROGEN 32 mg/dL (7-20); CALCIUM 8.7 mg/dL (8.4-10.2); CARBON DIOXIDE 27 mmol/L (22-30); CHLORIDE 108 mmol/L (98-107); GLUCOSE 140 mg/dL (75-110); POTASSIUM 3.6 mmol/L (3.6-5.0); SODIUM 144.8 mmol/L (137-145); TOTAL PROTEIN 6.4 g/dL (6.3-8.2)
== END 2017-06-23 18:23 | DRG 689 ==
LOC: ER 12:10 → INTOOBSV 14:34 → EH 14:34 → OBSVTOIN 14:34 → 4W 20:55
PROVIDERS: ADMIT Internal Medicine; ATTEND Internal Medicine
PROC: 30233N1 Transfusion of Nonautologous Red Blood Cells into Peripheral Vein, Percutaneous Approach (ICD-10-PCS; principal; 2017-06-20)
DX: N39.0 Urinary tract infection, site not specified (principal); G93.41 Metabolic encephalopathy; I13.0 Hypertensive heart and chronic kidney disease with heart failure and stage 1 through stage 4 chronic kidney disease, or unspecified chronic kidney disease; E87.0 Hyperosmolality and hypernatremia; N18.3 Chronic kidney disease, stage 3 (moderate); D63.1 Anemia in chronic kidney disease; F03.90 Unspecified dementia, unspecified severity, without behavioral disturbance, psychotic disturbance, mood disturbance, and anxiety; B96.20 Unspecified Escherichia coli [E. coli] as the cause of diseases classified elsewhere; I48.91 Unspecified atrial fibrillation; I50.9 Heart failure, unspecified; E78.00 Pure hypercholesterolemia, unspecified; E11.22 Type 2 diabetes mellitus with diabetic chronic kidney disease; Z90.710 Acquired absence of both cervix and uterus; Z79.899 Other long term (current) drug therapy; Z79.82 Long term (current) use of aspirin; Z78.1 Physical restraint status
CPT/HCPCS: 36415; 36430; 51701; 80048; 80053; 81001; 82607; 82728; 82746; 83540; 83550; 84466; 85025; 85045; 86850; 86900; 86901; 86920; 87040; 87086; 87088; 87186; 93005; 93010; 99285; G0378; J0696; J1644; J7030; P9016

== ENCOUNTER 2017-10-05 09:50 | Inpatient (IN) | payer MEDICARE, MEDICAID ==
--- NOTE | 2017-10-05 10:54 | ER Document Report ---
ED Extremity Problem, Lower - General Chief Complaint: vascular ulcers Stated Complaint: BILATERAL FOOT PAIN Time Seen by Provider: 10/05/17 10:42 Notes: 82-year-old female patient emergency department for evaluation of abnormal findings on her bilateral lower extremities. Patient has severe dementia. In a correction. Followed by wound nurse comes by to check on her. Has multiple toes that look like they are about to fall off. Strong odor. TRAVEL OUTSIDE OF THE [place] IN LAST 30 DAYS: No - Related Data Allergies/Adverse Reactions: No Known Allergies Allergy (Verified 03/15/14 07:31) Past Medical History - General Information source: Relative, [facility] Records Cannot obtain history due to: Dementia, Uncooperative, Altered mental status - Social History Smoking Status: Smoker,Current Status Unk Family History: Reviewed & Not Pertinent - Past Medical History Cardiac Medical History: Reports: Hx Atrial Fibrillation, Hx Congestive Heart Failure, Hx Hypercholesterolemia, Hx Hypertension Denies: Hx Coronary Artery Disease, Hx Heart Attack Pulmonary Medical History: Denies: Hx Asthma, Hx Bronchitis, Hx COPD, Hx Pneumonia Neurological Medical History: Denies: Hx Cerebrovascular Accident, Hx Seizures Endocrine Medical History: Reports: Hx Diabetes Mellitus Type 1, Hx Diabetes Mellitus Type 2 Renal/ Medical History: Denies: Hx Peritoneal Dialysis GI Medical History: Denies: Hx Hepatitis, Hx Hiatal Hernia, Hx Ulcer Musculoskeletal Medical History: Denies Hx Arthritis Infectious Medical History: Denies: Hx Hepatitis Past Surgical History: Reports: Hx Hysterectomy. Denies: Hx Mastectomy, Hx Open Heart Surgery, Hx Pacemaker - Immunizations Hx Diphtheria, Pertussis, Tetanus Vaccination: No - unknown Review of Systems - Review of Systems -: Yes ROS unobtainable due to patient's medical condition Physical Exam - Vital signs Vitals: Temp Pulse Resp BP Pulse Ox 98.4 F 114 H 18 140/90 H 97 10/05/17 09:58 10/05/17 09:58 10/05/17 09:58 10/05/17 09:58 10/05/17 09:58 Interpretation: Tachycardic - General General appearance: Alert In distress: Mild - HEENT Head: Normocephalic, Atraumatic Eyes: Normal Pupils: PERRL - Respiratory Respiratory status: No respiratory distress Chest status: Nontender Breath sounds: Normal Chest palpation: Normal - Cardiovascular Rhythm: Tachycardia Heart sounds: Normal auscultation Murmur: No - Abdominal Inspection: Normal Distension: No distension Bowel sounds: Normal Tenderness: Nontender Organomegaly: No organomegaly - Genitourinary External exam: Other - color changes, necrotic looking - Back Back: Normal, Nontender - Extremities General upper extremity: Normal inspection, Nontender, Normal color, Normal ROM , Normal temperature General lower extremity: Other - Patient has black pulseless fifth toe on the right foot with eschar on the first toe of the right foot. No palpable pulses on the foot. Cold to the touch. Left foot demonstrates necrosis of the first, second, third digits. Cool to the touch. No palpable pulses of the dorsalis pedis or posterior tibialis. - Skin Skin Temperature: Warm Skin Moisture: Dry Skin Color: Other - Necrosis around the labia minora and vulvar area. There are necrotic toes present bilaterally. Course - Re-evaluation Re-evalutation: 10/05/17 12:11 Patient has low H&H. Transfuse with 2 units PRBCs. No pulses present in bilateral feet. Getting arterial study at this time. Patient is demented. Severe dementia. residential patient with a DNR. Tachycardic in the 130s. Giving IV fluids and blood at this time. Consult the patient's doctor for admission at this time. 10/05/17 12:51 This is a very sick patient with low hemoglobin and hematocrit, severe hypokalemia which we are replacing at this time, severe peripheral vascular disease with signs of necrosis. Consult the patient's primary care doctor. Patient is a DNR at this time. Family is at bedside and realize how sick she is. Will admit at this time. - Vital Signs Vital signs: Temp Pulse Resp BP Pulse Ox 98.4 F 114 H 18 140/90 H 97 10/05/17 09:58 10/05/17 09:58 10/05/17 09:58 10/05/17 09:58 10/05/17 09:58 - Laboratory Result Diagrams: 10/05/17 10:54 10/05/17 10:54 Laboratory results interpreted by me: 10/05/17 10/05/17 10/05/17 10:54 10:54 12:26 WBC 13.6 H RBC 2.83 L Hgb 7.4 L Hct 23.2 L MCH 26.2 L RDW 16.4 H Plt Count 514 H Seg Neutrophils % 83.6 H Lymphocytes % 9.7 L Absolute Neutrophils 11.4 H PT 16.1 H Sodium 149.3 H Potassium 2.2 L* Carbon Dioxide 34 H BUN 21 H Est GFR (Non-Af Amer) 52 L Glucose 119 H Calcium 8.2 L Direct Bilirubin 0.5 H Albumin 3.1 L Crossmatch 10/05/17 12:26 WBC RBC Hgb Hct MCH RDW Plt Count Seg Neutrophils % Lymphocytes % Absolute Neutrophils PT Sodium Potassium Carbon Dioxide BUN Est GFR (Non-Af Amer) Glucose Calcium Direct Bilirubin Albumin Crossmatch See Detail - EKG Interpretation by Me Rate: Tachycardia Critical Care Note - Critical Care Note Total time excluding time spent on procedures (mins): 45 Comments: Tachycardia, anemia, vascular issues, consultation with specialists Discharge - Discharge Clinical Impression: Peripheral vascular disease of foot Anemia Qualifiers: Anemia type: unspecified type Qualified Code(s): D64.9 - Anemia, unspecified Disposition: ADMITTED INPATIENT Admitting Provider: [facility] Admitted: Telemetry
[2017-10-05 11:03] LABS: ABSOLUTE EOSINOPHILS # (AUTO) 0.1 10^3/uL (0.0-0.6); ABSOLUTE LYMPHOCYTES (AUTO) 1.3 10^3/uL (0.5-4.7); ABSOLUTE MONOCYTES (AUTO) 0.8 10^3/uL (0.1-1.4); ABSOLUTE NEUT (AUTO) 11.4 10^3/uL (1.7-8.2); BASOPHILS % (AUTO) 0.3 % (0-2); EOSINOPHILS % (AUTO) 0.5 % (0-6); HEMATOCRIT 23.2 % (36.0-47.0); LYMPHOCYTES % (AUTO) 9.7 % (13-45); MEAN CORPUSCULAR HEMOGLOBIN 26.2 pg (27.0-33.4); MEAN CORPUSCULAR VOLUME 82 fl (80-97); MONOCYTES % (AUTO) 5.9 % (3-13); PLATELET COUNT 514 10^3/uL (150-450); RED BLOOD COUNT 2.83 10^6/uL (3.72-5.28); RED CELL DISTRIBUTION WIDTH 16.4 % (11.5-14.0); SEGMENTED NEUTROPHILS % (AUTO) 83.6 % (42-78); TOTAL CELLS COUNTED % (AUTO) 100 %; WHITE BLOOD COUNT 13.6 10^3/uL (4.0-10.5)
[2017-10-05 11:06] LABS: HEMOGLOBIN 7.4 g/dL (12.0-15.5)
[2017-10-05 11:22] LABS: ALANINE AMINOTRANSFERASE 23 U/L (9-52); ALBUMIN 3.1 g/dL (3.5-5.0); ALKALINE PHOSPHATASE 102 U/L (38-126); ANION GAP 12 (5-19); ASPARTATE AMINO TRANSFERASE 35 U/L (14-36); BILIRUBIN,DIRECT 0.5 mg/dL (0.0-0.4); BILIRUBIN,TOTAL 0.7 mg/dL (0.2-1.3); BLOOD UREA NITROGEN 21 mg/dL (7-20); CALCIUM 8.2 mg/dL (8.4-10.2); CARBON DIOXIDE 34 mmol/L (22-30); CHLORIDE 103 mmol/L (98-107); GLUCOSE 119 mg/dL (75-110); SODIUM 149.3 mmol/L (137-145); TOTAL PROTEIN 6.9 g/dL (6.3-8.2)
[2017-10-05 11:27] LABS: POTASSIUM 2.2 mmol/L (3.6-5.0)
[2017-10-05] MEDS ORDERED: POTASSI CL 20 MEQ/50 ML RIDER 20 MEQ/50 ML RTUPB IV ONE (11:27)
[2017-10-05] MEDS ORDERED: NORMAL SALINE 250 ML IV PRN (12:02)
[2017-10-05 12:47] LABS: INTERNATIONAL RATION (INR) 1.23; PARTIAL THROMBOPLASTIN TIME 31.1 SEC (23.5-35.8); PROTHROMBIN TIME 16.1 SEC (11.4-15.4)
[2017-10-05] MEDS ORDERED: PIPERACILLIN/TAZOBACTAM 3.375 GM VIAL IV ONE ×2 (13:10→16:45)
[2017-10-05] MEDS ORDERED: KETOROLAC TROMETHAMINE INJ/PF 30 MG/1 ML SDV IV ONE ×2 (13:10→16:45)
--- NOTE | 2017-10-05 15:20 | XCELERA REPORT ---
[address] [address] Lower Extremity Arterial Evaluation Name: NINA DALEY Age: 82 yrs Gender: Female : 1935 Patient Status: Inpatient Patient Location: [place] [address]^A Study Date: 10/05/2017 01:07 PM Procedure: A color flow and duplex scan of the lower extremity arteries was performed bilaterally with velocity and waveform analysis. Reason For Study: toes falling off Ordering Physician: RITCHIE GLASGOW Performed By: Andrei Jones Measurements and Calculations Right Left KILN STACKER PSV 62.4 55.4 cm/sec Prox PFA PSV -14.5 -62.5 cm/sec Prox SFA PSV 22.4 27.5 cm/sec Mid SFA PSV -26.3 -19.8 cm/sec Dist SFA PSV -24.3 -21.2 cm/sec Prox Pop A PSV 21.1 18.7 cm/sec Dist SHERRY PSV 8.3 9.0 cm/sec Dist [employer]WARDER PSV 16.4 -12.0 cm/sec Right Side Arterial Evaluation Abnormally low velocity and monophasic waveforms noted from the Common Femoral artery to the infrageniculate vessels. 50-99 % stenosis at the Aorto Iliac inflow. Ankle Brachial index not done due to bandaging. Left Side Arterial Evaluation Abnormally low velocity and monophasic waveforms noted from the Common Femoral artery to the infrageniculate vessels. 50-99 % stenosis at the Aorto Iliac inflow. Ankle Brachial index not done due to bandaging. Critical Findings Discussed with Dr Glasgow at about 1500. Interpretation Summary Severe hemodynamically significant lesions in the bilateral lower extremities, on duplex imaging, at rest. Compatible with tissue loss. : RITCHIE GLASGOW [place]
--- NOTE | 2017-10-05 16:08 | RADIOLOGY REPORT (SQ) ---
EXAM DESCRIPTION: CT ABD/PELVIS WITH IV ONLY COMPLETED DATE/TIME: 10/05/2017 3:19 pm REASON FOR STUDY: abd pain COMPARISON: 02/22/2015 TECHNIQUE: CT scan of the abdomen and pelvis performed using helical scanning technique with dynamic intravenous contrast injection. No oral contrast. Images reviewed with lung, soft tissue, and bone windows. Reconstructed coronal and sagittal MPR images reviewed. Delayed images for evaluation of the urinary system also acquired. All images stored on PACS. All CT scanners at this facility use dose modulation, iterative reconstruction, and/or weight based d osing when appropriate to reduce radiation dose to as low as reasonably achievable (ALARA). [facility]: Dose Right [facility]: CareDose [facility]: Dose Right [facility]: Teradose 4D [facility]: sigmacare CONTRAST TYPE AND DOSE: contrast/concentration: Isovue 350.00 mg/ml; Total Contrast Delivered: 58.0 ml; Total Saline Delivered: 65.0 ml RENAL FUNCTION: Creatinine - 1.0 to BUN=21 RADIATION DOSE: CT Rad equipment meets quality standard of care and radiation dose reduction techniq ues were employed. CTDIvol: 7.9 - 11.3 mGy. DLP: 989 mGy-cm.. LIMITATIONS: None. FINDINGS: LOWER CHEST: Interval decrease in size of the small bilateral pleural effusions. Slight bilateral compressive atelectatic changes in the lower lobes. Cardiomegaly. Coronary artery calcifi cations. LIVER: Normal size. No masses. No dilated ducts. SPLEEN: Normal size. No focal lesions. PANCREAS: Atrophic appearing pancreas, stable finding. No masses. No significant calcifications. No adjacent inflammation or peripancreatic fluid collections. Pancreatic duct not dilated. GALLBLADDER: Prior cholecystectomy. ADRENAL GLANDS: No significant masses or asymmetry. RIGHT KIDNEY AND URETER: Too small to characterize hypoattenuated right renal lesion. No significant calcifications. No hydronephrosis or hydroureter. LEFT KIDNEY AND URETER: No solid masses. No significant calcifications. No hydronephrosis or hydr oureter. AORTA AND VESSELS: Dense extends atherosclerotic changes involving the abdominal aorta and branch ve ssels. Since the previous examination, mild thrombus in the lateral wall of the infrarenal abdominal aorta down to the level of the bifurcation. The right common iliac artery, right proximal external a nd internal iliac arteries appear to be thrombosed. RETROPERITONEUM: No retroperitoneal adenopathy, hemorrhage or masses. BOWEL AND PERITONEAL CAVITY: No masses or inflammatory changes. No free fluid or peritoneal masses. APPENDIX: Normal. PELVIS: A catheter is present within the urinary bladder. A few small air-fluid levels in the dome of the urinary bladder likely related to recent procedure. Prior hysterectomy. No free fluid. ABDOMINAL WALL: Stable right ventral abdominal wall hernia contains fat, and atherosclerotic small m esenteric vessels. BONES: The osseous structures are stable in appearance. OTHER: No other significant finding. IMPRESSION: 1 Since the previous examination dated 02/22/2015, new development of mild to moderate t hrombus along the left lateral wall of the infrarenal abdominal aorta down to the level of the bifurc ation. The right common iliac artery and right proximal internal and external arteries appear to be thrombosed, representing new finding since the prior study. Correlation suggested. 2. Extensive dense atherosclerotic changes involving the abdominal aorta and the branch vessels. 3 Stable too small to characterize hypoattenuated right renal lesion. 4 A urinary bladder catheter. A few small air-fluid levels in the dome of the urinary bladder likely related to the recent procedure. 5. Small bilateral pleural effusions which have decreased since the prior study. 6. Additional stable findings as above. TECHNICAL DOCUMENTATION: JOB ID: [id number] Quality ID # [id number]: Final reports with documentation of one or more dose reduction techniques (e.g., Au tomated exposure control, adjustment of the mA and/or kV according to patient size, use of iterative reconstruction technique) 2010 [employer]- All Rights Reserved Reading location - IP/workstation name: [email or web address]
[2017-10-05 19:08] LABS: ABSOLUTE LYMPHOCYTES (AUTO) 0.8 10^3/uL (0.5-4.7); ABSOLUTE MONOCYTES (AUTO) 0.7 10^3/uL (0.1-1.4); ABSOLUTE NEUT (AUTO) 9.2 10^3/uL (1.7-8.2); BASOPHILS % (AUTO) 0.4 % (0-2); EOSINOPHILS % (AUTO) 0.2 % (0-6); LYMPHOCYTES % (AUTO) 7.2 % (13-45); MEAN CORPUSCULAR HEMOGLOBIN 27.3 pg (27.0-33.4); MEAN CORPUSCULAR HGB CONC 32.9 g/dL (32.0-36.0); MEAN CORPUSCULAR VOLUME 83 fl (80-97); MONOCYTES % (AUTO) 6.8 % (3-13); PLATELET COUNT 423 10^3/uL (150-450); RED BLOOD COUNT 2.78 10^6/uL (3.72-5.28); RED CELL DISTRIBUTION WIDTH 15.9 % (11.5-14.0); SEGMENTED NEUTROPHILS % (AUTO) 85.4 % (42-78); TOTAL CELLS COUNTED % (AUTO) 100 %; WHITE BLOOD COUNT 10.7 10^3/uL (4.0-10.5)
[2017-10-05 19:11] LABS: HEMOGLOBIN 7.6 g/dL (12.0-15.5)
[2017-10-05] MEDS ORDERED: ACETAMINOPHEN 325 MG TABLET PO PRN (19:13)
[2017-10-05] MEDS ORDERED: DEXTROSE 40% GEL 15 GM TUBE X 2 PO PRN (19:14)
[2017-10-05] MEDS ORDERED: DEXTROSE 50%-WATER SYRINGE 12.5 GM/25 ML DOSE IV PRN (19:14)
[2017-10-05] MEDS ORDERED: DEXTROSE 40% GEL 15 GM TUBE PO PRN (19:14)
[2017-10-05] MEDS ORDERED: DEXTROSE 50%-WATER SYRINGE 25 GM/50 ML DOSE IV PRN (19:14)
[2017-10-05] MEDS ORDERED: GLUCAGON,HUMAN RECOMB 1 MG INJ IM PRN (19:14)
[2017-10-05] MEDS ORDERED: INSULIN LISPRO 100 UNIT/ML 3 ML VIAL SUBCUT PRN (19:14)
[2017-10-05] MEDS: ENOXAPARIN SODIUM INJ 60 MG/0.6 ML DISP.SYRIN SUBCUT SCH ×3 (19:16→22:29)
[2017-10-05 19:25] LABS: ANION GAP 13 (5-19); BLOOD UREA NITROGEN 21 mg/dL (7-20); CALCIUM 7.7 mg/dL (8.4-10.2); CARBON DIOXIDE 31 mmol/L (22-30); CHLORIDE 104 mmol/L (98-107); GLUCOSE 122 mg/dL (75-110); SODIUM 148.1 mmol/L (137-145)
--- NOTE | 2017-10-05 19:30 | PDOC CONSULTATION ---
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 Aguilar. This 82-year-old female suffers from chronic dementia, as well as progressive arterial insufficiency of the lower extremities. 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 The patient now has purple discoloration of the bilateral toes as well as right heel. Vascular testing shows minimal arterial blood flow below the common femoral artery. The patient is not alert enough to relay any of her medical history. The medical history is obtained from the family and nursing staff. Past Medical History Cardiac Medical History: Reports: Atrial Fibrillation, Congestive Heart Failure , Hyperlipidema, Hypertension Denies: Coronary Artery Disease, Myocardial Infarction Pulmonary Medical History: Denies: Asthma, Bronchitis, Chronic Obstructive Pulmonary Disease (COPD), Pneumonia Neurological Medical History: Denies: Seizures Endocrine Medical History: Reports: Diabetes Mellitus Type 1, Diabetes Mellitus Type 2 GI Medical History: Denies: Hepatitis, Hiatal Hernia Musculoskeltal Medical History: Denies: Arthritis Past Surgical History Past Surgical History: Reports: Hysterectomy Denies: Mastectomy, Pacemaker Social History Smoking Status: Never Smoker Frequency of Alcohol Use: None Hx Recreational Drug Use: No Drugs: None Hx Prescription Drug Abuse: No - Advance Directive Resuscitation Status: Do Not Resuscitate Family History Family History: Reviewed & Not Pertinent Parental Family History Reviewed: Yes Children Family History Reviewed: Yes Sibling(s) Family History Reviewed.: Yes Medication/Allergy Home Medications: Acetaminophen [Tylenol 325 mg Tablet] 650 mg PO Q6HP PRN 10/05/17 Ascorbic Acid [Vitamin C 500 mg Tablet] 500 mg PO QAM 10/05/17 Aspirin [Aspirin 81 mg Chewable Tablet] 81 mg PO QAM 10/05/17 Atorvastatin Calcium [Lipitor 80 mg Tablet] 80 mg PO QHS 10/05/17 Calcium Carbonate [Tums Chewable 500 mg Tab.chew] 250 mg PO BID 10/05/17 Cranberry Fruit Extract [Cranberry 250 mg Capsule] 250 mg PO QAM 10/05/17 Hydralazine HCl [Apresoline 50 mg Tablet] 50 mg PO Q8 10/05/17 Magnesium Hydroxide [Milk of Magnesia 30 ml Udcup] 30 ml PO ASDIR PRN 10/05/17 Memantine HCl [Namenda 10 mg Tablet] 10 mg PO BID 10/05/17 Metoprolol Succinate [Toprol XL 100 mg Tablet] 100 mg PO QAM 10/05/17 Multivit-Min/Iron/Folic/Lutein [Centrum Silver Women Tablet] 1 tab PO QAM Zinc Sulfate [Zinc-220 Capsule] 220 mg PO QAM 10/05/17 Allergies/Adverse Reactions: No Known Allergies Allergy (Verified 03/15/14 07:31) Review of Systems ROS unobtainable: Due to mental status Physical Exam Vital Signs: Temp Pulse Resp BP Pulse Ox 100.9 F H 114 H 17 130/63 H 94 10/05/17 17:01 10/05/17 09:58 10/05/17 17:01 10/05/17 17:01 10/05/17 17:01 Intake & Output 10/04/17 10/05/17 10/06/17 06:59 06:59 06:59 Intake Total 50 Balance 50 General appearance: PRESENT: mild distress - Pain in lower extremities Head exam: PRESENT: atraumatic, normocephalic Eye exam: PRESENT: EOMI, PERRLA. ABSENT: scleral icterus Mouth exam: PRESENT: neck supple Neck exam: ABSENT: lymphadenopathy, meningismus, tenderness, thyromegaly, tracheal deviation Respiratory exam: PRESENT: unlabored. ABSENT: chest wall tenderness, wheezes Cardiovascular exam: PRESENT: irregular rhythm Pulses: PRESENT: other - Peripheral lower extremity pulses absent. Vascular exam: PRESENT: pallor, other - Necrosis of large portions of the right foot including the toes and heel. Necrosis of the toes of the left foot. Rectal exam: PRESENT: deferred Extremities exam: ABSENT: pedal edema Neurological exam: PRESENT: awake. ABSENT: oriented to person, oriented to place, oriented to time, oriented to situation Psychiatric exam: ABSENT: agitated, anxious Skin exam: PRESENT: pallor, other - Necrosis of the lower extremities. ABSENT: jaundice Results Laboratory Results: 10/05/17 18:50 10/05/17 18:50 WBC 10.7 H RBC 2.78 L Hgb 7.6 L Hct 23.0 L MCV 83 MCH 27.3 MCHC 32.9 RDW 15.9 H Plt Count 423 Seg Neutrophils % 85.4 H Lymphocytes % 7.2 L Monocytes % 6.8 Eosinophils % 0.2 Basophils % 0.4 Absolute Neutrophils 9.2 H Absolute Lymphocytes 0.8 Absolute Monocytes 0.7 Absolute Eosinophils 0.0 Absolute Basophils 0.0 Impressions: Abdomen/Pelvis CT 10/05/17 13:31 IMPRESSION: 1 Since the previous examination dated 02/22/2015, new development of mild to moderate thrombus along the left lateral wall of the infrarenal abdominal aorta down to the level of the bifurcation. The right common iliac artery and right proximal internal and external arteries appear to be thrombosed , representing new finding since the prior study. Correlation suggested. 2. Extensive dense atherosclerotic changes involving the abdominal aorta and the branch vessels. 3 Stable too small to characterize hypoattenuated right renal lesion. 4 A urinary bladder catheter. A few small air-fluid levels in the dome of the urinary bladder likely related to the recent procedure. 5. Small bilateral pleural effusions which have decreased since the prior study. 6. Additional stable findings as above. Arterial duplex reviewed. Minimal flow beneath the superficial femoral artery. Status: Image reviewed by me Assessment & Plan - Diagnosis (1) Arterial insufficiency of lower extremity Is this a current diagnosis for this admission?: Yes (2) Peripheral vascular disease of foot Is this a current diagnosis for this admission?: Yes - Plan Summary Plan Summary: This is an 82-year-old female with multiple medical problems. She has severe arterial insufficiency of bilateral lower extremities with limb ischemia. This has been progressive. Ideally, the patient should be transferred to a tertiary care facility with vascular surgeons who can reperfuse her legs and address her gangrene. The patient's family is not interested in surgical intervention or transfer. The patient is currently a DNR. There is no surgical intervention that I can offer that would be helpful. I have recommended hospice as the most appropriate option. I will see the patient again on an as-needed basis. Please renotify with any questions or concerns.
[2017-10-05 19:41] LABS: POTASSIUM 2.4 mmol/L (3.6-5.0)
[2017-10-05] MEDS ORDERED: POTASSIUM CHLORIDE 10 MEQ CAPSULE.ER PO ONE (20:00)
--- NOTE | 2017-10-05 20:05 | PDOC H&P ---
History of Present Illness Admission Date/PCP: 10/05/17 12:47 NEISHA AGUILAR MD History of Present Illness: NINA DALEY is a 82 year old female, She has very advanced dementia, resident of retirement home at [place], she was transferred to the emergency room for evaluation of discoloration of the toes of both feet, the right is worse than the left. In the emergency room she was evaluated, a CAT scan of the abdomen and pelvis was done with IV contrast, it demonstrated dense atherosclerotic changes involving the abdominal aorta and branch vessels, thrombosis in the lateral wall of the infrarenal abdominal aorta down to the level of aortic bifurcation. The right common iliac, right proximal external, internal iliac vessels are thrombosed. She has extensive arterial insufficiency with severe hypokalemia. Patient is moribund severely ill looking , she is a DNR status, I spoke to the patient daughter about her condition, she knows she is very sick, she is not particularly a candidate for intervention , family does not want any intervention done. She has history of atrial fibrillation, severe dementia, prognosis is very poor. Past Medical History Cardiac Medical History: Reports: Atrial Fibrillation, Congestive Heart Failure , Hyperlipidema, Hypertension Endocrine Medical History: Reports: Diabetes Mellitus Type 2 Past Surgical History Past Surgical History: Reports: Hysterectomy Social History Smoking Status: Never Smoker Frequency of Alcohol Use: None Hx Recreational Drug Use: No Drugs: None Hx Prescription Drug Abuse: No - Advance Directive Resuscitation Status: Do Not Resuscitate Family History Family History: Reviewed & Not Pertinent Parental Family History Reviewed: Yes Children Family History Reviewed: Yes Sibling(s) Family History Reviewed.: Yes Medication/Allergy Home Medications: Acetaminophen [Tylenol 325 mg Tablet] 650 mg PO Q6HP PRN 10/05/17 Ascorbic Acid [Vitamin C 500 mg Tablet] 500 mg PO QAM 10/05/17 Aspirin [Aspirin 81 mg Chewable Tablet] 81 mg PO QAM 10/05/17 Atorvastatin Calcium [Lipitor 80 mg Tablet] 80 mg PO QHS 10/05/17 Calcium Carbonate [Tums Chewable 500 mg Tab.chew] 250 mg PO BID 10/05/17 Cranberry Fruit Extract [Cranberry 250 mg Capsule] 250 mg PO QAM 10/05/17 Hydralazine HCl [Apresoline 50 mg Tablet] 50 mg PO Q8 10/05/17 Magnesium Hydroxide [Milk of Magnesia 30 ml Udcup] 30 ml PO ASDIR PRN 10/05/17 Memantine HCl [Namenda 10 mg Tablet] 10 mg PO BID 10/05/17 Metoprolol Succinate [Toprol XL 100 mg Tablet] 100 mg PO QAM 10/05/17 Multivit-Min/Iron/Folic/Lutein [Centrum Silver Women Tablet] 1 tab PO QAM Zinc Sulfate [Zinc-220 Capsule] 220 mg PO QAM 10/05/17 Allergies/Adverse Reactions: No Known Allergies Allergy (Verified 03/15/14 07:31) Review of Systems ROS unobtainable: Other - Due to dementia Physical Exam Vital Signs: Temp Pulse Resp BP Pulse Ox 100.9 F H 104 H 17 130/63 H 94 10/05/17 17:01 10/05/17 19:00 10/05/17 17:01 10/05/17 17:01 10/05/17 17:01 Intake & Output 10/04/17 10/05/17 10/06/17 06:59 06:59 06:59 Intake Total 50 Balance 50 Weight 57.5 kg General appearance: PRESENT: thin Eye exam: PRESENT: conjunctiva pale Respiratory exam: PRESENT: clear to auscultation jesus Cardiovascular exam: PRESENT: irregular rhythm, +S1, +S2, systolic murmur Pulses: PRESENT: other - Pedal pulses not palpable Vascular exam: PRESENT: other - Gangrene involving multiple toes of both feet GI/Abdominal exam: PRESENT: soft Neurological exam: PRESENT: alert Results Laboratory Results: 10/05/17 18:50 10/05/17 18:50 10/05/17 10/05/17 10/05/17 18:50 18:50 18:50 WBC 10.7 H RBC 2.78 L Hgb 7.6 L Hct 23.0 L MCV 83 MCH 27.3 MCHC 32.9 RDW 15.9 H Plt Count 423 Seg Neutrophils % 85.4 H Lymphocytes % 7.2 L Monocytes % 6.8 Eosinophils % 0.2 Basophils % 0.4 Absolute Neutrophils 9.2 H Absolute Lymphocytes 0.8 Absolute Monocytes 0.7 Absolute Eosinophils 0.0 Absolute Basophils 0.0 Sodium 148.1 H Potassium 2.4 L* Chloride 104 Carbon Dioxide 31 H Anion Gap 13 BUN 21 H Creatinine 1.00 Est GFR ( Amer) > 60 Est GFR (Non-Af Amer) 53 L Glucose 122 H Lactic Acid 0.9 Calcium 7.7 L Impressions: Abdomen/Pelvis CT 10/05/17 13:31 IMPRESSION: 1 Since the previous examination dated 02/22/2015, new development of mild to moderate thrombus along the left lateral wall of the infrarenal abdominal aorta down to the level of the bifurcation. The right common iliac artery and right proximal internal and external arteries appear to be thrombosed , representing new finding since the prior study. Correlation suggested. 2. Extensive dense atherosclerotic changes involving the abdominal aorta and the branch vessels. 3 Stable too small to characterize hypoattenuated right renal lesion. 4 A urinary bladder catheter. A few small air-fluid levels in the dome of the urinary bladder likely related to the recent procedure. 5. Small bilateral pleural effusions which have decreased since the prior study. 6. Additional stable findings as above. 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 Because of patient advanced dementia, poor mobility, severe vasculopathy with thromboembolic phenomena the best course of action would be hospice, hospice consultation will be obtained for this patient, I already spoke to the daughter about the gravity of illness and that she probably would not do well with treatment. (2) Thrombosis of abdominal aorta Is this a current diagnosis for this admission?: Yes (3) Aortic bifurcation thrombosis syndrome Is this a current diagnosis for this admission?: Yes (4) Hypokalemia Is this a current diagnosis for this admission?: Yes Plan: Replace potassium (5) Dementia Qualifiers: Dementia type: Alzheimer's disease Alzheimer's disease onset: late-onset Dementia behavioral disturbance: without behavioral disturbance Qualified Code (s): G30.1 - Alzheimer's disease with late onset; F02.80 - Dementia in other diseases classified elsewhere without behavioral disturbance; F02.80 - Dementia in other diseases classified elsewhere without behavioral disturbance; F02.80 - Dementia in other diseases classified elsewhere without behavioral disturbance Is this a current diagnosis for this admission?: Yes (6) Atrial fibrillation Qualifiers: Atrial fibrillation type: chronic Qualified Code(s): I48.2 - Chronic atrial fibrillation Is this a current diagnosis for this admission?: Yes (7) Anemia Qualifiers: Anemia type: unspecified type Qualified Code(s): D64.9 - Anemia, unspecified Is this a current diagnosis for this admission?: Yes Plan: Transfuse packed red blood cells
[2017-10-05] MEDS ORDERED: POTASSI CL 20 MEQ/50 ML RIDER 20 MEQ/50 ML RTUPB IV SCH (20:15)
[2017-10-05] MEDS: POTASSIUM CHLORIDE 20 MEQ/50 ML RTU IV SCH ×3 (22:06→22:42)
[2017-10-05 22:15] LABS: AMORPHOUS SEDIMENT,URINE TRACE /HPF; APPEARANCE,URINE SLIGHTLY-CLOUDY; BILIRUBIN,URINE NEGATIVE (NEGATIVE); COLOR,URINE YELLOW; GLUCOSE, URINE NEGATIVE (NEGATIVE); KETONES,URINE NEGATIVE (NEGATIVE); LEUKOCYTE ESTERASE,URINE LARGE (NEGATIVE); NITRITE,URINE NEGATIVE (NEGATIVE); PROTEIN,URINE 100 mg/dL (NEGATIVE)
--- NOTE | 2017-10-05 22:24 | EKG REPORT ---
SEVERITY:- ABNORMAL ECG - ATRIAL FIBRILLATION, V-RATE 82-144 RIGHT BUNDLE BRANCH BLOCK PROBABLE INFERIOR INFARCT, AGE INDETERMINATE : Confirmed by: Kay Enrique MD 05-Oct-2017 22:23:59
[2017-10-05 22:27] LABS: URINE SPECIFIC GRAVITY > 1.060
[2017-10-06] MEDS: POTASSIUM CHLORIDE 20 MEQ/50 ML RTU IV SCH ×2 (00:58→03:33)
[2017-10-06 03:16] LABS: ABSOLUTE BASOPHILS # (AUTO) 0.1 10^3/uL (0.0-0.2); ABSOLUTE EOSINOPHILS # (AUTO) 0.1 10^3/uL (0.0-0.6); ABSOLUTE LYMPHOCYTES (AUTO) 0.8 10^3/uL (0.5-4.7); ABSOLUTE MONOCYTES (AUTO) 0.7 10^3/uL (0.1-1.4); ABSOLUTE NEUT (AUTO) 9.3 10^3/uL (1.7-8.2); BASOPHILS % (AUTO) 0.6 % (0-2); EOSINOPHILS % (AUTO) 0.8 % (0-6); HEMATOCRIT 26.8 % (36.0-47.0); HEMOGLOBIN 9.1 g/dL (12.0-15.5); MEAN CORPUSCULAR HEMOGLOBIN 27.8 pg (27.0-33.4); MEAN CORPUSCULAR HGB CONC 33.8 g/dL (32.0-36.0); MEAN CORPUSCULAR VOLUME 82 fl (80-97); MONOCYTES % (AUTO) 6.1 % (3-13); PLATELET COUNT 430 10^3/uL (150-450); RED BLOOD COUNT 3.26 10^6/uL (3.72-5.28); RED CELL DISTRIBUTION WIDTH 15.5 % (11.5-14.0); SEGMENTED NEUTROPHILS % (AUTO) 85.5 % (42-78); TOTAL CELLS COUNTED % (AUTO) 100 %; WHITE BLOOD COUNT 10.9 10^3/uL (4.0-10.5)
[2017-10-06] MEDS: MORPHINE SULFATE 10 MG/ML INJ IV PRN ×3 (03:33→17:10)
[2017-10-06 03:38] LABS: ANION GAP 12 (5-19); BLOOD UREA NITROGEN 21 mg/dL (7-20); CALCIUM 7.5 mg/dL (8.4-10.2); CARBON DIOXIDE 30 mmol/L (22-30); CHLORIDE 109 mmol/L (98-107); GLUCOSE 116 mg/dL (75-110); SODIUM 150.6 mmol/L (137-145)
[2017-10-06 03:41] LABS: POTASSIUM 2.8 mmol/L (3.6-5.0)
[2017-10-06] MEDS ORDERED: DEXTROSE 5%-WATER 1000 ML 1,000 ML IV PRN (06:25)
[2017-10-06] MEDS ORDERED: LEVOFLOXACIN 750 MG/D5W RTU 750 MG/150 ML RTUPB IV SCH (10:00)
[2017-10-06] MEDS: POTASSI CL 40 MEQ/D5-1/2NS 1L 40 MEQ/1,000 ML RTUINJ IV PRN ×2 (10:13→23:21)
[2017-10-06] MEDS: ENOXAPARIN SODIUM INJ 60 MG/0.6 ML DISP.SYRIN SUBCUT SCH ×2 (10:14→22:19)
--- NOTE | 2017-10-06 21:27 | PDOC PROGRESS REPORT ---
Subjective Progress Note for:: 10/06/17 Subjective:: Patient's condition has remained poor, she is admitted for management of extensive thrombosis involving the aorta down to the aortic bifurcation, hypokalemia Reason For Visit: PERIPHERAL VASCULAR DISEASE OF FOOT/ANEMIA Physical Exam Vital Signs: Temp Pulse Resp BP Pulse Ox 99.0 F 120 H 20 128/67 H 98 10/06/17 15:39 10/06/17 15:39 10/06/17 15:39 10/06/17 15:39 10/06/17 15:39 Intake & Output 10/05/17 10/06/17 10/07/17 06:59 06:59 06:59 Intake Total 950 687 Output Total 500 200 Balance 450 487 Weight 57.9 kg General appearance: PRESENT: no acute distress Eye exam: PRESENT: PERRLA Respiratory exam: PRESENT: decreased breath sounds Cardiovascular exam: PRESENT: +S1, +S2 Results Laboratory Results: 10/06/17 03:06 10/06/17 03:06 10/05/17 10/06/17 10/06/17 21:48 03:06 03:06 WBC 10.9 H RBC 3.26 L Hgb 9.1 L Hct 26.8 L MCV 82 MCH 27.8 MCHC 33.8 RDW 15.5 H Plt Count 430 Seg Neutrophils % 85.5 H Lymphocytes % 7.0 L Monocytes % 6.1 Eosinophils % 0.8 Basophils % 0.6 Absolute Neutrophils 9.3 H Absolute Lymphocytes 0.8 Absolute Monocytes 0.7 Absolute Eosinophils 0.1 Absolute Basophils 0.1 Sodium 150.6 H Potassium 2.8 L* Chloride 109 H Carbon Dioxide 30 Anion Gap 12 BUN 21 H Creatinine 1.03 Est GFR ( Amer) > 60 Est GFR (Non-Af Amer) 51 L Glucose 116 H Calcium 7.5 L Urine Color YELLOW Urine Appearance SLIGHTLY-CLOUDY Urine pH 5.0 Ur Specific [place] > 1.060 Urine Protein 100 H Urine Glucose (UA) NEGATIVE Urine Ketones NEGATIVE Urine Blood MODERATE H Urine Nitrite NEGATIVE Ur Leukocyte Esterase LARGE H Urine WBC (Auto) 96 Urine RBC (Auto) 98 Impressions: Abdomen/Pelvis CT 10/05/17 13:31 IMPRESSION: 1 Since the previous examination dated 02/22/2015, new development of mild to moderate thrombus along the left lateral wall of the infrarenal abdominal aorta down to the level of the bifurcation. The right common iliac artery and right proximal internal and external arteries appear to be thrombosed , representing new finding since the prior study. Correlation suggested. 2. Extensive dense atherosclerotic changes involving the abdominal aorta and the branch vessels. 3 Stable too small to characterize hypoattenuated right renal lesion. 4 A urinary bladder catheter. A few small air-fluid levels in the dome of the urinary bladder likely related to the recent procedure. 5. Small bilateral pleural effusions which have decreased since the prior study. 6. Additional stable findings as above. 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 Is this a current diagnosis for this admission?: Yes (2) Thrombosis of abdominal aorta Is this a current diagnosis for this admission?: Yes (3) Aortic bifurcation thrombosis syndrome Is this a current diagnosis for this admission?: Yes (4) Hypokalemia Is this a current diagnosis for this admission?: Yes (5) Dementia Qualifiers: Dementia type: Alzheimer's disease Alzheimer's disease onset: late-onset Dementia behavioral disturbance: without behavioral disturbance Qualified Code (s): G30.1 - Alzheimer's disease with late onset; F02.80 - Dementia in other diseases classified elsewhere without behavioral disturbance; F02.80 - Dementia in other diseases classified elsewhere without behavioral disturbance; F02.80 - Dementia in other diseases classified elsewhere without behavioral disturbance Is this a current diagnosis for this admission?: Yes (6) Atrial fibrillation Qualifiers: Atrial fibrillation type: chronic Qualified Code(s): I48.2 - Chronic atrial fibrillation Is this a current diagnosis for this admission?: Yes (7) Anemia Qualifiers: Anemia type: unspecified type Qualified Code(s): D64.9 - Anemia, unspecified Is this a current diagnosis for this admission?: Yes
[2017-10-07 05:26] LABS: APPEARANCE,URINE CLOUDY; BILIRUBIN,URINE NEGATIVE (NEGATIVE); COLOR,URINE AMBER; GLUCOSE, URINE NEGATIVE (NEGATIVE); KETONES,URINE NEGATIVE (NEGATIVE); LEUKOCYTE ESTERASE,URINE MODERATE (NEGATIVE); NITRITE,URINE NEGATIVE (NEGATIVE); PROTEIN,URINE 100 mg/dL (NEGATIVE); URINE SPECIFIC GRAVITY 1.029
[2017-10-07 05:42] LABS: HEMATOCRIT 25.8 % (36.0-47.0); HEMOGLOBIN 8.6 g/dL (12.0-15.5); MEAN CORPUSCULAR HEMOGLOBIN 27.7 pg (27.0-33.4); MEAN CORPUSCULAR HGB CONC 33.4 g/dL (32.0-36.0); MEAN CORPUSCULAR VOLUME 83 fl (80-97); PLATELET COUNT 366 10^3/uL (150-450); RED BLOOD COUNT 3.11 10^6/uL (3.72-5.28); RED CELL DISTRIBUTION WIDTH 15.8 % (11.5-14.0); WHITE BLOOD COUNT 10.9 10^3/uL (4.0-10.5)
[2017-10-07 06:08] LABS: ANION GAP 11 (5-19); BLOOD UREA NITROGEN 20 mg/dL (7-20); CALCIUM 7.2 mg/dL (8.4-10.2); CARBON DIOXIDE 26 mmol/L (22-30); CHLORIDE 110 mmol/L (98-107); GLUCOSE 129 mg/dL (75-110); POTASSIUM 3.8 mmol/L (3.6-5.0); SODIUM 147.4 mmol/L (137-145)
[2017-10-07] MEDS: ENOXAPARIN SODIUM INJ 60 MG/0.6 ML DISP.SYRIN SUBCUT SCH (10:23)
[2017-10-07] MEDS: POTASSI CL 40 MEQ/D5-1/2NS 1L 40 MEQ/1,000 ML RTUINJ IV PRN (10:31)
[2017-10-07] MEDS: MORPHINE SULFATE 10 MG/ML INJ IV PRN ×4 (13:22→23:01)
--- NOTE | 2017-10-07 15:51 | PDOC PROGRESS REPORT ---
Subjective Progress Note for:: 10/07/17 Subjective:: I had a long discussion with patient's daughter, family has decided to transition care to comfort care measures Reason For Visit: PERIPHERAL VASCULAR DISEASE OF FOOT/ANEMIA Physical Exam Vital Signs: Temp Pulse Resp BP Pulse Ox 99.6 F 125 H 17 122/60 98 10/07/17 11:04 10/07/17 11:04 10/07/17 11:04 10/07/17 11:04 10/07/17 11:04 Intake & Output 10/06/17 10/07/17 10/08/17 06:59 06:59 06:59 Intake Total 950 1687 1000 Output Total 500 500 Balance 450 1187 1000 Weight 57.9 kg 64.5 kg General appearance: PRESENT: mild distress Eye exam: PRESENT: PERRLA Respiratory exam: PRESENT: clear to auscultation jesus Cardiovascular exam: PRESENT: +S1, +S2 Results Laboratory Results: 10/07/17 04:05 10/07/17 04:05 10/07/17 10/07/17 10/07/17 04:05 04:05 04:50 WBC 10.9 H RBC 3.11 L Hgb 8.6 L Hct 25.8 L MCV 83 MCH 27.7 MCHC 33.4 RDW 15.8 H Plt Count 366 Sodium 147.4 H Potassium 3.8 Chloride 110 H Carbon Dioxide 26 Anion Gap 11 BUN 20 Creatinine 1.09 Est GFR ( Amer) 58 L Est GFR (Non-Af Amer) 48 L Glucose 129 H Calcium 7.2 L Urine Color DARSHAN Urine Appearance CLOUDY Urine pH 5.0 Ur Specific Orange 1.029 Urine Protein 100 H Urine Glucose (UA) NEGATIVE Urine Ketones NEGATIVE Urine Blood SMALL H Urine Nitrite NEGATIVE Ur Leukocyte Esterase MODERATE H Urine WBC (Auto) 49 Urine RBC (Auto) 9 Impressions: Abdomen/Pelvis CT 10/05/17 13:31 IMPRESSION: 1 Since the previous examination dated 02/22/2015, new development of mild to moderate thrombus along the left lateral wall of the infrarenal abdominal aorta down to the level of the bifurcation. The right common iliac artery and right proximal internal and external arteries appear to be thrombosed , representing new finding since the prior study. Correlation suggested. 2. Extensive dense atherosclerotic changes involving the abdominal aorta and the branch vessels. 3 Stable too small to characterize hypoattenuated right renal lesion. 4 A urinary bladder catheter. A few small air-fluid levels in the dome of the urinary bladder likely related to the recent procedure. 5. Small bilateral pleural effusions which have decreased since the prior study. 6. Additional stable findings as above. 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 Is this a current diagnosis for this admission?: Yes (2) Thrombosis of abdominal aorta Is this a current diagnosis for this admission?: Yes (3) Aortic bifurcation thrombosis syndrome Is this a current diagnosis for this admission?: Yes (4) Hypokalemia Is this a current diagnosis for this admission?: Yes (5) Dementia Qualifiers: Dementia type: Alzheimer's disease Alzheimer's disease onset: late-onset Dementia behavioral disturbance: without behavioral disturbance Qualified Code (s): G30.1 - Alzheimer's disease with late onset; F02.80 - Dementia in other diseases classified elsewhere without behavioral disturbance; F02.80 - Dementia in other diseases classified elsewhere without behavioral disturbance; F02.80 - Dementia in other diseases classified elsewhere without behavioral disturbance Is this a current diagnosis for this admission?: Yes (6) Atrial fibrillation Qualifiers: Atrial fibrillation type: chronic Qualified Code(s): I48.2 - Chronic atrial fibrillation Is this a current diagnosis for this admission?: Yes (7) Anemia Qualifiers: Anemia type: unspecified type Qualified Code(s): D64.9 - Anemia, unspecified Is this a current diagnosis for this admission?: Yes - Plan Summary Plan Summary: The CARE is transitioned to comfort care measure
[2017-10-07 15:57] VITALS: BP 105/84
[2017-10-08] MEDS: MORPHINE SULFATE 10 MG/ML INJ IV PRN ×6 (02:35→23:19)
[2017-10-08] MEDS ORDERED: LORAZEPAM INJ 2 MG/1 ML VIAL ONE (09:06)
[2017-10-08] MEDS: LORAZEPAM INJ 2 MG/1 ML VIAL IV PRN ×2 (16:20→23:20)
--- NOTE | 2017-10-08 20:59 | PDOC PROGRESS REPORT ---
Subjective Progress Note for:: 10/08/17 Subjective:: Patient is presently comfort care measures, she is moribund family by the bedside, no new issues to address Reason For Visit: PERIPHERAL VASCULAR DISEASE OF FOOT/ANEMIA Physical Exam Vital Signs: Temp Pulse Resp BP Pulse Ox 98.9 F 101 H 20 105/84 94 10/07/17 15:14 10/07/17 15:14 10/07/17 15:14 10/07/17 15:14 10/07/17 15:14 Intake & Output 10/07/17 10/08/17 10/09/17 06:59 06:59 06:59 Intake Total 1687 2237 Output Total 500 500 Balance 1187 1737 Weight 64.5 kg Results Laboratory Results: 10/07/17 04:05 10/07/17 04:05 Impressions: Abdomen/Pelvis CT 10/05/17 13:31 IMPRESSION: 1 Since the previous examination dated 02/22/2015, new development of mild to moderate thrombus along the left lateral wall of the infrarenal abdominal aorta down to the level of the bifurcation. The right common iliac artery and right proximal internal and external arteries appear to be thrombosed , representing new finding since the prior study. Correlation suggested. 2. Extensive dense atherosclerotic changes involving the abdominal aorta and the branch vessels. 3 Stable too small to characterize hypoattenuated right renal lesion. 4 A urinary bladder catheter. A few small air-fluid levels in the dome of the urinary bladder likely related to the recent procedure. 5. Small bilateral pleural effusions which have decreased since the prior study. 6. Additional stable findings as above. 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 Is this a current diagnosis for this admission?: Yes (2) Thrombosis of abdominal aorta Is this a current diagnosis for this admission?: Yes (3) Aortic bifurcation thrombosis syndrome Is this a current diagnosis for this admission?: Yes (4) Hypokalemia Is this a current diagnosis for this admission?: Yes (5) Dementia Qualifiers: Dementia type: Alzheimer's disease Alzheimer's disease onset: late-onset Dementia behavioral disturbance: without behavioral disturbance Qualified Code (s): G30.1 - Alzheimer's disease with late onset; F02.80 - Dementia in other diseases classified elsewhere without behavioral disturbance; F02.80 - Dementia in other diseases classified elsewhere without behavioral disturbance; F02.80 - Dementia in other diseases classified elsewhere without behavioral disturbance Is this a current diagnosis for this admission?: Yes (6) Atrial fibrillation Qualifiers: Atrial fibrillation type: chronic Qualified Code(s): I48.2 - Chronic atrial fibrillation Is this a current diagnosis for this admission?: Yes (7) Anemia Qualifiers: Anemia type: unspecified type Qualified Code(s): D64.9 - Anemia, unspecified Is this a current diagnosis for this admission?: Yes
--- NOTE | 2017-10-09 07:45 | Death Summary ---
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 Is this a current diagnosis for this admission?: Yes (2) Thrombosis of abdominal aorta Is this a current diagnosis for this admission?: Yes (3) Aortic bifurcation thrombosis syndrome Is this a current diagnosis for this admission?: Yes (4) Hypokalemia Is this a current diagnosis for this admission?: Yes (5) Dementia Is this a current diagnosis for this admission?: Yes (6) Atrial fibrillation Is this a current diagnosis for this admission?: Yes (7) Anemia Is this a current diagnosis for this admission?: Yes Hospital Course:: Patient was admitted on 10/05/2017, she is a resident of the group home hyperkalemia she was transferred to the emergency room for evaluation of discoloration of the toes of both feet. In the emergency room she was evaluated , CAT scan of the abdomen and pelvis with IV contrast was done, it demonstrated dense atherosclerotic changes involving the abdominal aorta and branch vessels there was extensive gangrene of the toes of both feet patient's condition was very poor she also had anemia requiring blood transfusion with electrolyte derangement. She was a DNR status after consultation with family it was felt that the best plan of action for this patient will comfort care measures. She was made comfort care the last 48 hours, she this morning
== END 2017-10-09 06:25 | DRG 300 ==
LOC: ER 09:50 → EH 12:47 → 4N 17:45
PROVIDERS: ADMIT Internal Medicine; ATTEND Internal Medicine
PROC: 30233N1 Transfusion of Nonautologous Red Blood Cells into Peripheral Vein, Percutaneous Approach (ICD-10-PCS; principal; 2017-10-05)
DX: I70.263 Atherosclerosis of native arteries of extremities with gangrene, bilateral legs (principal); I74.09 Other arterial embolism and thrombosis of abdominal aorta; I74.5 Embolism and thrombosis of iliac artery; E11.52 Type 2 diabetes mellitus with diabetic peripheral angiopathy with gangrene; Z66 Do not resuscitate; I50.9 Heart failure, unspecified; I11.0 Hypertensive heart disease with heart failure; E78.00 Pure hypercholesterolemia, unspecified; E87.6 Hypokalemia; I48.2 Chronic atrial fibrillation; D64.9 Anemia, unspecified; R00.0 Tachycardia, unspecified; G30.1 Alzheimer's disease with late onset; F02.80 Dementia in other diseases classified elsewhere, unspecified severity, without behavioral disturbance, psychotic disturbance, mood disturbance, and anxiety; Z79.82 Long term (current) use of aspirin; Z79.899 Other long term (current) drug therapy
CPT/HCPCS: 36415; 36430; 74177; 80048; 80053; 81001; 82272; 82962; 83605; 85025; 85027; 85610; 85730; 86850; 86900; 86901; 86920; 87040; 87077; 87186; 93005; 93010; 93925; 99291; J1650; J1885; J1956; J2060; J2270; J2543; J3480; J7060; P9016